=== PATIENT | female | born 1980 | race Caucasian/White ===

== ENCOUNTER 2023-06-14 07:27 | Inpatient (IN) | payer BC ==
[~2023-06-14 07:27] MED LIST: Sodium Chloride 0.9% 10 ML Syringe FLUSH PRN
[2023-06-14] MEDS ORDERED: fentaNYL 100 MCG/2 ML SDV ONE (07:32)
[2023-06-14] MEDS ORDERED: Bupivacaine 0.25% 10 ML SDV ONE ×2 (07:32→07:33)
[2023-06-14] MEDS ORDERED: Lidocaine 1% 5 ML VIAL ONE (07:32)
[2023-06-14] MEDS ORDERED: Midazolam 1 MG/ML 2 ML SDV ONE (07:33)
[2023-06-14] MEDS ORDERED: Propofol 200 MG/20 ML SDV ONE ×2 (07:33→10:44)
[2023-06-14] MEDS ORDERED: Lactated Ringers 1,000 ML IV SCH (08:00)
[2023-06-14 08:07] LABS: BASOPHILS ABSOLUTE AUTO 0.1 K/mm3 (0.0-0.2); EOSINOPHILS ABSOLUTE AUTO 0.3 K/mm3 (0.0-0.4); EOSINOPHILS PERCENT AUTO 6.5 % (0.0-6.0); HEMATOCRIT 41.8 % (37.0-47.0); HEMOGLOBIN 13.5 gm/dl (12.0-16.0); IMMATURE GRAN ABSOLUTE AUTO 0.03 K/mm3 (0.00-0.05); IMMATURE GRAN PERCENT AUTO 0.6 % (0.0-0.4); LYMPHOCYTES ABSOLUTE AUTO 1.4 K/mm3 (1.0-4.8); LYMPHOCYTES PERCENT AUTO 25.9 % (24.0-44.0); MEAN CORPUSCULAR HEMOGLOBIN 27.4 pg (28.0-32.0); MEAN CORPUSCULAR HGB CONC 32.3 g/dl (32.0-36.0); MEAN CORPUSCULAR VOLUME 84.8 fl (83.0-99.0); MEAN PLATELET VOLUME 10.2 fl (9.4-12.3); MONOCYTES ABSOLUTE AUTO 0.5 K/mm3 (0.0-0.8); MONOCYTES PERCENT AUTO 9.4 % (0.0-8.0); NEUTROPHILS PERCENT AUTO 56.6 % (41.0-71.0); PLATELET COUNT,PLT 306 K/mm3 (150-400); RED BLOOD CELL COUNT 4.93 M/mm3 (4.10-5.30); WHITE BLOOD CELL COUNT,WBC 5.22 K/mm3 (3.9-11.3)
[2023-06-14] MEDS ORDERED: Ondansetron 4 MG/2 ML SDV IVPUSH PRN ×2 (08:08→15:06)
[2023-06-14] MEDS ORDERED: Meperidine 50 MG/ML Vial IVPUSH PRN (08:08)
[2023-06-14] MEDS ORDERED: diphenhydrAMINE 50 MG/ML SDV IVPUSH PRN ×3 (08:08→16:00)
[2023-06-14] MEDS ORDERED: fentaNYL 100 MCG/2 ML SDV IVPUSH PRN (08:08)
[2023-06-14] MEDS ORDERED: Morphine PF 10 MG/10 ML SDV ONE (08:12)
[2023-06-14] MEDS ORDERED: Ondansetron 4 MG/2 ML SDV ONE ×2 (08:16→09:59)
[2023-06-14 08:22] LABS: ALBUMIN 4.1 g/dl (3.4-5.0); ANION GAP 13.8 (5-15); BILIRUBIN TOTAL 0.5 mg/dL (0.2-1.0); BUN/CREATININE RATIO 17.5 (14-18); CALCIUM 9.5 mg/dL (8.5-10.1); CREATININE 0.8 mg/dL (0.55-1.02); EST CRCL DRUG DOSING (CG) 69.13 mL/min; POTASSIUM,K 2.8 mEq/L (3.5-5.1); PROTEIN TOTAL,TP 8.4 g/dl (6.4-8.2)
[2023-06-14] MEDS ORDERED: ceFAZolin 2 GM Vial ONE (08:40)
[2023-06-14] MEDS ORDERED: ePHEDrine 50 MG/ML SDV ONE (08:51)
[2023-06-14] MEDS ORDERED: Ketamine 200 MG/20 ML MDV ONE (08:56)
[2023-06-14] MEDS ORDERED: Lactated Ringers 1,000 ML ONE ×3 (08:56→11:34)
[2023-06-14] MEDS ORDERED: Dexamethasone 4 MG/ML 5 ML MDV ONE (08:57)
[2023-06-14] MEDS ORDERED: Sodium Chloride 0.9% 10 ML Syringe FLUSH SCH (09:00)
[2023-06-14] MEDS ORDERED: Vasopressin 20 Units/1 ML MDV ONE (09:30)
[2023-06-14] MEDS ORDERED: diphenhydrAMINE 50 MG/ML SDV ONE (09:33)
[2023-06-14] MEDS ORDERED: Sodium Chloride 0.9% 50 ML SDV ONE (09:37)
[2023-06-14] MEDS ORDERED: HYDROmorphone 0.5 MG/0.5 ML Syringe ONE (10:36)
[2023-06-14] MEDS ORDERED: Rocuronium 50 MG/5 ML Vial ONE (10:53)
[2023-06-14] MEDS ORDERED: Scopolamine 1.5 MG Transdermal Patch TOP SCH (10:58)
[2023-06-14] MEDS ORDERED: Succinylcholine 200 MG/10 ML MDV ONE (11:02)
[2023-06-14] MEDS ORDERED: Neostigmine Methylsulfate 10 MG/10 ML MDV ONE (11:15)
[2023-06-14] MEDS ORDERED: Ketorolac 30 MG/ML SDV ONE (11:17)
[2023-06-14 13:23] LABS: APPEARANCE,URINE CLOUDY (Clear); BILIRUBIN,URINE NEGATIVE (Negative); COLOR,URINE YELLOW (Yellow); GLUCOSE,URINE NEGATIVE (Negative); KETONES,URINE NEGATIVE (Negative); LEUKOCYTE ESTERASE,URINE NEGATIVE (Negative); NITRITE,URINE NEGATIVE (Negative); OCCULT BLOOD,URINE 2+ (Negative); PROTEIN,URINE 2+ (Negative); UROBILINOGEN,URINE 0.2 (0.2-1.0)
[2023-06-14 13:35] LABS: RBC,URINE 20-30 /hpf (0-5); WBC,URINE 0-5 /hpf (0-5)
[2023-06-14 13:36] LABS: AMORPHOUS SEDIMENT,URINE FEW /hpf (NOT SEEN); BACTERIA,URINE FEW /hpf (FEW); MUCUS,URINE FEW /hpf (FEW)
[2023-06-14] MEDS ORDERED: Lactated Ringers 1,000 ML IV ONE ×2 (15:07→18:29)
[2023-06-14] MEDS ORDERED: Hydrochlorothiazide 25 MG Tab PO ONE (16:53)
[2023-06-14 17:14] LABS: BASOPHILS PERCENT AUTO 0.3 % (0.0-1.0); EOSINOPHILS ABSOLUTE AUTO 0.1 K/mm3 (0.0-0.4); EOSINOPHILS PERCENT AUTO 0.8 % (0.0-6.0); HEMATOCRIT 37.8 % (37.0-47.0); IMMATURE GRAN ABSOLUTE AUTO 0.08 K/mm3 (0.00-0.05); IMMATURE GRAN PERCENT AUTO 0.5 % (0.0-0.4); LYMPHOCYTES ABSOLUTE AUTO 0.6 K/mm3 (1.0-4.8); LYMPHOCYTES PERCENT AUTO 3.5 % (24.0-44.0); MEAN CORPUSCULAR HEMOGLOBIN 28.1 pg (28.0-32.0); MEAN CORPUSCULAR HGB CONC 31.7 g/dl (32.0-36.0); MEAN CORPUSCULAR VOLUME 88.5 fl (83.0-99.0); MEAN PLATELET VOLUME 10.3 fl (9.4-12.3); MONOCYTES ABSOLUTE AUTO 0.8 K/mm3 (0.0-0.8); MONOCYTES PERCENT AUTO 4.7 % (0.0-8.0); NEUTROPHILS ABSOLUTE AUTO 14.4 K/mm3 (1.8-7.7); NEUTROPHILS PERCENT AUTO 90.2 % (41.0-71.0); NRBC ABSOLUTE 0.05 (0.00-0.02); NRBC PERCENT 0.3 % (0.0-0.2); PLATELET COUNT,PLT 293 K/mm3 (150-400); RED BLOOD CELL COUNT 4.27 M/mm3 (4.10-5.30); WHITE BLOOD CELL COUNT,WBC 15.95 K/mm3 (3.9-11.3)
[2023-06-14 17:36] LABS: A/G RATIO 0.9 (1-2); ALBUMIN 3.2 g/dl (3.4-5.0); ANION GAP 14.9 (5-15); BILIRUBIN TOTAL 0.6 mg/dL (0.2-1.0); CALCIUM 8.5 mg/dL (8.5-10.1); EST CRCL DRUG DOSING (CG) 55.3 mL/min; PROTEIN TOTAL,TP 6.9 g/dl (6.4-8.2)
[2023-06-14 17:40] LABS: POTASSIUM,K 3.9 mEq/L (3.5-5.1)
[2023-06-14] MEDS ORDERED: Ibuprofen 600 MG Tab PO PRN (18:00)
[2023-06-14] MEDS: Lactated Ringers 1,000 ML IV SCH (21:51)
[2023-06-14] MEDS: Ketorolac 30 MG/ML SDV IVPUSH PRN (21:58)
[2023-06-15] MEDS: Lactated Ringers 1,000 ML IV SCH (05:34)
[2023-06-15 06:57] LABS: BASOPHILS PERCENT AUTO 0.1 % (0.0-1.0); HEMATOCRIT 31.9 % (37.0-47.0); IMMATURE GRAN ABSOLUTE AUTO 0.06 K/mm3 (0.00-0.05); IMMATURE GRAN PERCENT AUTO 0.6 % (0.0-0.4); LYMPHOCYTES ABSOLUTE AUTO 1.1 K/mm3 (1.0-4.8); LYMPHOCYTES PERCENT AUTO 10.8 % (24.0-44.0); MEAN CORPUSCULAR HEMOGLOBIN 27.3 pg (28.0-32.0); MEAN CORPUSCULAR HGB CONC 31.3 g/dl (32.0-36.0); MEAN CORPUSCULAR VOLUME 87.2 fl (83.0-99.0); MEAN PLATELET VOLUME 11.1 fl (9.4-12.3); MONOCYTES ABSOLUTE AUTO 0.9 K/mm3 (0.0-0.8); MONOCYTES PERCENT AUTO 8.4 % (0.0-8.0); NEUTROPHILS ABSOLUTE AUTO 8.4 K/mm3 (1.8-7.7); NEUTROPHILS PERCENT AUTO 80.1 % (41.0-71.0); PLATELET COUNT,PLT 282 K/mm3 (150-400); RED BLOOD CELL COUNT 3.66 M/mm3 (4.10-5.30); WHITE BLOOD CELL COUNT,WBC 10.52 K/mm3 (3.9-11.3)
[2023-06-15] MEDS: Ketorolac 30 MG/ML SDV IVPUSH PRN (17:12)
[2023-06-16 07:51] VITALS: BP 116/60; PULSE 77
== END 2023-06-16 09:32 | disposition home or self-care (01) | DRG 519 ==
LOC: JD.MS 07:27 → JD.OB 13:26
PROVIDERS: ADMIT Obstetrics & Gynecology; ATTEND Obstetrics & Gynecology
PROC: 0UT90ZZ Resection of Uterus, Open Approach (ICD-10-PCS; principal; 2023-06-14)
PROC: 0UT70ZZ Resection of Bilateral Fallopian Tubes, Open Approach (ICD-10-PCS; 2023-06-14)
DX: D25.9 Leiomyoma of uterus, unspecified (principal); J45.909 Unspecified asthma, uncomplicated; E66.9 Obesity, unspecified; Z87.81 Personal history of (healed) traumatic fracture; Z87.442 Personal history of urinary calculi; Z98.890 Other specified postprocedural states; Z79.899 Other long term (current) drug therapy; Z68.37 Body mass index [BMI] 37.0-37.9, adult
CPT/HCPCS: 00840; 36415; 80053; 81001; 81025; 85025; 86850; 86900; 86901; 94761; 94762; A9270-GY; J0330; J0690; J1100; J1170; J1200; J1885; J2250; J2274; J2405; J2704; J2710; J3010; J3490; J7120